=== PATIENT | female | born 1960 | race Caucasian/White ===

== ENCOUNTER 2018-11-15 23:12 | Emergency (ER) | payer BC ==
[~2018-11-15] VITALS: Ht 172.7 cm; Wt 77.0 kg
[2018-11-15 23:20] VITALS: BP 134/82
[2018-11-16] MEDS ORDERED: PRED20TA PO (00:02)
== END 2018-11-16 00:12 | disposition home or self-care (01) ==
LOC: ER 23:13
DX: G51.0 Bell's palsy (principal); Z79.899 Other long term (current) drug therapy
CPT/HCPCS: 99283